=== PATIENT | male | born 1975 | race Caucasian/White ===

== ENCOUNTER → 2018-09-17 | Outpatient (CLI) | payer OTHER ==
--- NOTE | 2018-09-17 16:44 | KCIC ---
Exam: MRI of the left shoulder without contrast HISTORY: History of pain in the left shoulder Comparison: None available Technique: Multiplanar, multisequence MR imaging of the left shoulder performed without contrast FINDINGS: The long head of the biceps tendon is within the bicipital groove. The attachment of the long head of the biceps tendon to the superior labral anchor grossly appears intact. The attachment of the subscapularis tendon, infraspinatus, teres minor tendons grossly appears intact. Minimal increased signal identified in the supraspinatus and infraspinatus tendon likely mild tendinosis. No evidence of full-thickness tear. Moderate degenerative changes or chronic loculated joint. The muscle bulk grossly appears unremarkable. There is faint increased T2 signal identified in the teres minor muscle probably is artifactual from T2 shading and less likely edema. The visualized labrum grossly appears unremarkable. Moderate degenerative changes acromioclavicular joint with mild trabecular edema in the distal clavicle and acromion. IMPRESSION: 1. Faint increased T2 signal identified in the teres minor muscle probably is artifactual from T2 shading and less likely edema from quadrilateral space syndrome. Correlate clinically. 2. Moderate degenerative changes acromioclavicular joint. 3. Mild tendinosis supraspinatus, infraspinatus tendons. Electronically signed by: Eric Sandhu MD (09/17/2018 4:41 PM) [id number]
== END | disposition home or self-care (01) ==
LOC: KCIC MRI 15:04
PROVIDERS: ATTEND Family Medicine
DX: M19.012 Primary osteoarthritis, left shoulder (principal); M75.82 Other shoulder lesions, left shoulder
CPT/HCPCS: 73221